=== PATIENT | female | born 1940 | race Caucasian/White ===

== ENCOUNTER 2018-11-10 14:26 | Emergency (ER) | payer MEDICARE ==
[~2018-11-10] VITALS: Ht 154.9 cm; Wt 56.8 kg
[2018-11-10] MEDS ORDERED: INSLAN SQ (14:35)
[2018-11-10] MEDS ORDERED: IBUPROFEN 600 MG TABLET PO ONE (14:45)
[2018-11-10] MEDS ORDERED: ACETAMINOPHEN 500 MG TABLET PO ONE (14:45)
[2018-11-10] MEDS ORDERED: SODIUM CHLORIDE 0.9% 1,000 ML IV ONE ×2 (15:00→17:45)
[2018-11-10] MEDS: SODIUM CHLORIDE 0.9% 1,000 ML IV ONE ×2 (15:08→15:54)
[2018-11-10 15:26] LABS: LACTIC ACID 1.5 mmol/L (0.4-2.0)
[2018-11-10 15:27] LABS: BASOPHILS % (AUTO) 0.2 % (0.0-2.0); EOSINOPHILS % (AUTO) 0.1 % (1.0-6.0); HEMATOCRIT 41.1 % (36-46); HEMOGLOBIN 14.2 g/dL (12.0-16.0); LYMPHOCYTES # (AUTO) 1.3 K/uL (1.0-4.8); LYMPHOCYTES % (AUTO) 14.5 % (22.0-44.0); MEAN CORPUSCULAR HEMOGLOBIN 29.8 pg (26.0-34.0); MEAN CORPUSCULAR HGB CONC 34.6 G/dL (31.0-37.0); MEAN CORPUSCULAR VOLUME 86 fL (80-100); MONOCYTES # (AUTO) 0.6 K/uL (0.1-1.0); MONOCYTES % (AUTO) 6.6 % (2.0-9.0); NEUTROPHILS % (AUTO) 78.6 % (40.0-70.0); PLATELET COUNT (AUTO) 238 K/uL (150-450); RED BLOOD CELL COUNT(AUTO) 4.77 MIL/uL (4.00-5.20); RED CELL DISTRIBUTION WIDTH 12.2 % (11.5-14.5)
[2018-11-10 15:30] LABS: BILIRUBIN,TOTAL 0.8 mg/dL (0.1-1.0); CALCIUM, TOTAL 8.6 mg/dL (8.8-10.5); CREATININE 0.92 mg/dL (0.60-1.30); POTASSIUM 3.7 mmol/L (3.5-5.1)
[2018-11-10 15:46] LABS: PROTHROMBIN TIME 10.1 SEC (9.4-11.6)
[2018-11-10 16:15] LABS: APPEARANCE,URINE TURBID (CLEAR); GLUCOSE, URINE (UA) >=1000 mg/dL (NEGATIVE); KETONES,URINE TRACE mg/dL (NEGATIVE); LEUKOCYTE ESTERASE ,URINE TRACE (NEGATIVE); NITRATE,URINE NEGATIVE (NEGATIVE); OCCULT BLOOD,URINE MODERATE (NEGATIVE); PH,URINE 6.5 (5.0-8.0); PROTEIN,URINE SEE CONFIRM (NEGATIVE)
[2018-11-10 16:43] LABS: BILIRUBIN,URINE PRELIM. POSITIVE (NEGATIVE)
[2018-11-10] MEDS ORDERED: PIPERACILLIN/TAZO 3.375 GM/D5W 50 ML IV ONE (17:00)
[2018-11-10] MEDS ORDERED: VANCOMYCIN HCL 1 GM/D5% WATER 200 ML IV ONE (17:00)
[2018-11-10 17:11] LABS: SULFOSALICYLIC ACID,URINE 4+ (Negative)
[2018-11-10 17:13] LABS: AMORPHOUS SEDIMENT,UR Moderate /LPF (None Seen); BACTERIA,URINE Many /HPF (None Seen); SQUAMOUS EPITHELIAL CELL,UR Moderate /LPF (None Seen)
[2018-11-10 17:17] LABS: INFLUENZA TYPE A NEGATIVE FOR TYPE A (NEGATIVE); INFLUENZA TYPE B NEGATIVE FOR TYPE B (NEGATIVE)
[2018-11-10 21:03] VITALS: BP 144/77
[2018-11-11] MEDS ORDERED: PIPERACILLIN/TAZO 3.375 GM/D5W 50 ML IV ONE
== END 2018-11-10 21:59 | disposition short-term general hospital (02) ==
LOC: EMS 14:29
DX: J18.9 Pneumonia, unspecified organism (principal); E11.9 Type 2 diabetes mellitus without complications
CPT/HCPCS: 36415; 71045; 80053; 81001; 82962; 83605; 83690; 83880; 84484; 85025; 85610; 87040; 87086; 87804; 93005; 96361; 96365; 96366; 96367; 99285; J2543; J3370; J7030